=== PATIENT | female | born 1935 | race Two or more races ===

== ENCOUNTER 2023-09-03 15:57 | Emergency (ER) | payer MEDICARE, OTHER ==
[~2023-09-03] VITALS: Ht 172.7 cm; Wt 75.0 kg
[2023-09-03 15:59] VITALS: O2SAT 98
[2023-09-03 16:59] LABS: BASOPHILS % 0.4 % (0.0-2.0); DIFFERENTIAL COMMENT 0; EOSINOPHILS % 0.7 % (0.0-5.0); HEMATOCRIT. 43.5 % (36.0-48.0); HEMOGLOBIN. 14.4 g/dL (12.0-16.0); LYMPHOCYTES % 18.9 % (20.0-50.0); MEAN CORPUSCULAR HEMOGLOBIN 33.3 pg (28.0-32.0); MEAN CORPUSCULAR VOLUME 100.7 fL (81.0-99.0); MEAN PLATELET VOLUME 7.9 fl (7.4-10.4); MONOCYTES % 13.8 % (2.0-8.0); NEUTROPHILS % 66.2 % (40.0-76.0); PLATELET 219 x1000/uL (130-400); RED BLOOD CELL COUNT 4.32 mill/uL (4.2-5.4); RED CELL DISTRIBUTION WIDTH 14.5 % (11.6-14.6); WHITE BLOOD COUNT 7.4 x1000/uL (4.5-11.0)
[2023-09-03 17:03] LABS: CHLORIDE 106 mEq/L (98-107); POTASSIUM 5.8 mEq/L (3.5-5.1); SODIUM 136 mEq/L (136-145)
[2023-09-03 17:04] LABS: CALCIUM 10.9 mg/dL (8.7-10.4); CARBON DIOXIDE 22 mEq/L (21-32)
[2023-09-03 17:09] LABS: GLUCOSE 139 mg/dL (70-105); UREA NITROGEN BLOOD 17 mg/dL (9-23)
[2023-09-03 17:11] LABS: ALANINE AMINOTRANSFERASE 57 IU/L (10-49); ALBUMIN 4.1 g/dL (3.2-4.8); ASPARTATE AMINOTRANSFERASE 95 IU/L (<34); BILIRUBIN TOTAL 0.8 mg/dL (0.1-1.0); TROPONIN I HIGH SENSITIVITY 6 ng/L (3.0-34)
[2023-09-03 17:12] LABS: PROTEIN TOTAL 7.5 g/dL (6.0-8.3)
[2023-09-03] MEDS: SODIUM CHLORIDE 0.9% 1,000 ML IV ONE (17:57)
[2023-09-03] MEDS: SODIUM BICARBONATE 8.4% 50MEQ/50ML SYR IV ONE (17:59)
[2023-09-03 18:18] LABS: INR 1.2; PARTIAL THROMBOPLASTIN TIME < 21.0 sec (23.4-31.0)
[2023-09-03 18:44] LABS: CARBON DIOXIDE 25 mEq/L (21-32)
[2023-09-03 18:46] LABS: CHLORIDE 106 mEq/L (98-107); POTASSIUM 4.9 mEq/L (3.5-5.1); SODIUM 137 mEq/L (136-145)
[2023-09-03 18:49] LABS: CREATININE 0.8 mg/dL (0.6-1.0); GLUCOSE 108 mg/dL (70-105); UREA NITROGEN BLOOD 12 mg/dL (9-23)
[2023-09-03 20:54] VITALS: BP 151/87; PULSE 85; RESP 13; TEMP 97.6
== END 2023-09-03 21:03 | disposition home or self-care (01) ==
LOC: ER 15:57 → EDBEDREQ 20:37 → EDBEDREQTM 20:37 → ER 21:03
DX: R55 Syncope and collapse (principal); I11.0 Hypertensive heart disease with heart failure; I50.9 Heart failure, unspecified; I48.91 Unspecified atrial fibrillation; F03.90 Unspecified dementia, unspecified severity, without behavioral disturbance, psychotic disturbance, mood disturbance, and anxiety; Z86.73 Personal history of transient ischemic attack (TIA), and cerebral infarction without residual deficits
CPT/HCPCS: 99285; 96374; 70450; 71045; 80053; 83880; 85025; 85610; 85730; 84484; 36415; 93005; 80048; J3490; J7030